=== PATIENT | female | born 2000 | race Caucasian/White ===

== ENCOUNTER 2022-12-07 18:02 | Emergency (ER) | payer OTHER ==
[~2022-12-07] VITALS: Ht 152.4 cm; Wt 55.0 kg
[2022-12-07 18:06] VITALS: O2SAT 100
[2022-12-07] MEDS ORDERED: MORPHINE SULFATE 4 MG/ML CPJ (NOT FOR IM USE) IV ONE (18:15)
[2022-12-07] MEDS ORDERED: TETANUS, DIPHTHERIA, PERTUSSIS VAC/PF 0.5ML (>10YR OLD) IM ONE ×2 (18:15→20:30)
[2022-12-07 19:34] LABS: HEMATOCRIT 38.9 % (36.0-48.0); HEMOGLOBIN 12.7 g/dL (12.0-16.0); MEAN CORPUSCULAR HEMOGLOBIN 28.9 pg (28.0-32.0); MEAN CORPUSCULAR HGB CONC 32.6 g/dL (31.0-37.0); MEAN CORPUSCULAR VOLUME 88.5 fL (81.0-99.0); PLATELET 254 x1000/uL (130-400); RED BLOOD CELL COUNT 4.39 mill/uL (4.2-5.4); RED CELL DISTRIBUTION WIDTH 13.1 % (11.6-14.6); WHITE BLOOD COUNT 15.6 x1000/uL (4.5-11.0)
[2022-12-07 19:46] LABS: CHLORIDE 110 mEq/L (98-107); INDEX HEMOLYSI 1 (1-3); INDEX ICTERIC 1 (1-4); INDEX LIPEMIC 1 (1-3); SODIUM 142 mEq/L (136-145)
[2022-12-07 19:49] LABS: HCG SCREEN NEGATIVE
[2022-12-07 19:53] LABS: ALANINE AMINOTRANSFERASE 22 IU/L (13-61); ASPARTATE AMINOTRANSFERASE 18 IU/L (15-37); BILIRUBIN TOTAL 0.3 mg/dL (0.1-1.0); CALCIUM 8.9 mg/dL (8.5-10.1); CARBON DIOXIDE 23 mEq/L (21-32); CREATININE 0.8 mg/dL (0.6-1.3); GLUCOSE 88 mg/dL (70-105); PROTEIN TOTAL 7.8 g/dL (6.0-8.3); UREA NITROGEN BLOOD 12 mg/dL (7-21)
[2022-12-07] MEDS ORDERED: MORPHINE SULFATE 4 MG/ML CPJ (NOT FOR IM USE) IV NR (20:30)
[2022-12-07] MEDS ORDERED: POTASSIUM CHLORIDE 20MEQ TABLET SR PO ONE (20:30)
[2022-12-07] MEDS ORDERED: NAPR-1129 MT (20:36)
[2022-12-07] MEDS ORDERED: POTASSIUM CHLORIDE 20MEQ TABLET SR PO NR (20:45)
[2022-12-07 21:30] VITALS: BP 116/62; PULSE 61; RESP 16; TEMP 98.2
== END 2022-12-07 23:20 | disposition home or self-care (01) ==
LOC: ER 18:02
DX: S09.90XA Unspecified injury of head, initial encounter (principal); M54.2 Cervicalgia; G89.11 Acute pain due to trauma; V49.49XA Driver injured in collision with other motor vehicles in traffic accident, initial encounter; Y93.89 Activity, other specified; Y92.89 Other specified places as the place of occurrence of the external cause; Y99.8 Other external cause status
CPT/HCPCS: 99285; 70450; 96374; 71045; 80053; 84703; 85027; 36415; 72125; 90715; 90471; J2270